=== PATIENT | female | born 1985 | race Two or more races ===

== ENCOUNTER 2024-08-23 15:30 | Emergency (ER) | payer MEDICAID, SELFPAY ==
[2024-08-23 16:29] VITALS: BP 133/84; PULSE 60; RESP 20; TEMP 37.1; O2SAT 98
--- NOTE | 2024-08-23 16:40 | PD.EDBACK ---
ED Back Injury Pain RME/HPI General Chief Complaint: Back Pain/Injury Stated Complaint: Lower back pain X 2 days Time Seen by Provider: 08/23/24 16:28 Arrival date/time: 08/23/24 15:30 This is a 38-year-old female that comes into the emergency room with complaints of left lower back pain. Patient states that her dogs are fighting yesterday and she was trying to pull them apart and not fight anymore. Patient states that her left lower back started hurting since then. Patient denies any other trauma patient denies any fall. Patient denies any numbness tingling patient denies any loss of bowel or bladder control. Patient is ambulatory. Patient denies any other symptoms. Related Data Previous Rx's ?Medication ?Instructions ?Recorded HYDROCODONE BIT/ACETAMINOPHEN 1 tab PO Q6HR PRN Patient rated 07/13/14 (Vicodin 5/300) pain 4 to 6 #14 tabs ibuprofen 400 mg tablet 800 mg (2 x 400 mg) PO Q8HR PRN 07/13/14 PAIN #28 tabs cyclobenzaprine 10 mg tablet 10 mg PO BID #20 tabs 08/23/24 ibuprofen 800 mg tablet 800 mg PO Q6H PRN pain #20 tabs 08/23/24 Allergies Allergy/AdvReac Type Severity Reaction Status Date / Time NKA* Allergy Uncoded 08/23/24 15:37 Course Orders Category Date Time Status Acetaminophen Tab [Tylenol ES Tab] Med 08/23/24 16:39 Once 1,000 mg PO X1 ONE CYCLObenzaPRINE [Flexeril] Med 08/23/24 16:39 Once 10 mg PO X1 ONE Ketorolac Inj [Toradol Inj] Med 08/23/24 16:39 Once 60 mg IM X1 ONE Metoclopramide Inj [Reglan Inj] Med 08/23/24 16:39 Once 10 mg IM X1 ONE Vital Signs Vital signs: Vital Signs Temperature 98.7 F 08/23/24 16:29 Pulse Rate 60 08/23/24 16:29 Respiratory Rate 20 08/23/24 16:29 Blood Pressure 133/84 H 08/23/24 16:29 Pulse Oximetry (%) 98 08/23/24 16:29 Oxygen Delivery Method Room Air 08/23/24 16:29 Back Pain / Injury MDM Narrative MDM Narrative:: I spoke to patient at length. Patient given Tylenol, Toradol, Reglan, and Flexeril. Will treat for a muscle strain. I did talk to patient at length that if symptoms change or worsen she may need further studies such as an x-ray CT or MRI. Patient verbalized understanding. Patient told to follow-up with primary provider in 1 to 2 days. Medications / Prescriptions Medication administrations:: Medication Administration History Acetaminophen (Acetaminophen 500 Mg Tablet) 1,000 mg PO X1 ONE Stop: 08/23/24 16:40 Cyclobenzaprine HCl (Cyclobenzaprine 5 Mg Tablet) 10 mg PO X1 ONE Stop: 08/23/24 16:40 Ketorolac Tromethamine (Ketorolac Inj 60 Mg/2 Ml Vial) 60 mg IM X1 ONE Stop: 08/23/24 16:40 Metoclopramide HCl (Metoclopramide Inj 5 Mg/Ml Vial 2 Ml) 10 mg IM X1 ONE; Protocol Stop: 08/23/24 16:40 Discharge Plan Plan Patient Disposition: HOME (Self Care) Patient condition on transfer: Stable Prescriptions/Referrals Prescriptions/Med Rec: New ibuprofen 800 mg tablet 800 mg PO Q6H PRN (Reason: pain) Qty: 20 0RF cyclobenzaprine 10 mg tablet 10 mg PO BID Qty: 20 0RF No Action ibuprofen 400 MG tablet 800 mg PO Q8HR PRN (Reason: PAIN) Qty: 28 0RF HYDROCODONE BIT/ACETAMINOPHEN (Vicodin 5/300) 1 TAB tablet 1 tab PO Q6HR PRN (Reason: Patient rated pain 4 to 6) Qty: 14 0RF Problem List Clinical Impression: Back pain Patient/Caregiver Discharge Instructions Discharge Activity: activity as tolerated Education Materials: ED Back Pain (Acute or Chronic) Print Language: Tajik Stand Alone Forms: Rona Award Info., Patient Portal Info Letter PA/LITERATURE TEACHER Supervising Physician PA/LITERATURE TEACHER Supervising Physician: [email or web address]
[2024-08-23] MEDS: ACETAMINOPHEN 500 MG TABLET 1000 MG PO (17:07)
[2024-08-23] MEDS: METOCLOPRAMIDE INJ 5 MG/ML VIAL 2 ML 10 MG IM (17:08)
[2024-08-23] MEDS: KETOROLAC INJ 60 MG/2 ML VIAL IM (17:09)
== END 2024-08-23 17:19 | disposition home or self-care (01) ==
LOC: SERX 17:20
PROVIDERS: Emergency Provider Family Medicine; PCP Family Medicine
DX: M54.50 Low back pain, unspecified (principal)
CPT/HCPCS: 96372; 99283; J1885; J2765; A9270